=== PATIENT | female | born 1990 | race Caucasian/White ===

== ENCOUNTER → 2021-09-11 04:57 | Outpatient (CLI) | payer BC, SELFPAY ==
[2021-09-11 13:02] LABS: SARS-CoV-2 RNA PCR Negative
== END ==
PROVIDERS: Visit Provider Obstetrics & Gynecology
DX: Z01.812 Encounter for preprocedural laboratory examination (principal); Z20.822 Contact with and (suspected) exposure to COVID-19
CPT/HCPCS: C9803; U0003; U0005

== ENCOUNTER 2021-09-14 02:44 | Day surgery (SDC) | payer BC, SELFPAY ==
[2021-09-10 09:23] VITALS: BMI 21.6
--- NOTE | 2021-09-10 09:33 | PC.NURSE ---
Report to the Outpatient Waiting Room, entrance under the green pavilion located off [facility], at time 0600 on date 09/14/21. OR Time: 0730. - You and your visitor will be asked a series of questions to screen for COVID 19 for your protection. - A mask is required within the hospital. One visitor will be allowed to accompany the patient into the hospital. Patients visitor will be instructed to remain with patient at all times or leave the building. We will allow the visitor to come back to the postoperative area when patient is ready. Preoperative COVID Testing Requirements: COVID TEST 09/11 AT 0935 No COVID Test needed if: (proof is required; if not received patient will have Rapid Test prior to entry) - Patient has received COVID Vaccine at least 14 days prior to procedure date or - Patient has positive COVID test result within last 90 days of surgery date. COVID Test needed if above criteria is not met If not COVID vaccinated a COVID test must be conducted within 72 hours of surgery and patient is asked to isolate self from time of testing until procedure. You will go to the [facility] for your COVID testing. The [facility] site is located at the corner of [address] [facility]. You will only be called if COVID results are positive and your surgeon may reschedule your elective surgery date. Patients may have clear liquids (water, carbonated beverages, clear teas, apple juice) until 3 hours prior to surgery with a maximum of 20 ounces. - No food from midnight until time of surgery Take the following medications with a SIP of water the morning of surgery: CEPHALEXIN Medications to discontinue per physician: N/A Date to take last dose: N/A Please no make-up, nail australian, hairspray, perfume, deodorant, or body powder the day of surgery. No jewelry (including any body piercings) or valuables the day of surgery, leave them at home. Please take a shower or bath the night before, or the morning of, surgery with an antibacterial soap. Wear comfortable, loose fitting clothing. - Jewelry must be removed prior to entering the operating room. Rings and piercings that are not removed may be cut off. - The hospital will not accept responsibility for valuables. - Please leave all valuables, including medications, at home the day of surgery. If you are going home after surgery, a licensed rolloff truck driver must drive you home. - NO public transportation without another adult. - We recommend that an adult stay with you for 24 hours following discharge. - We also recommend that you do not drive, make important decision, drink alcoholic beverages, or take any drugs that were not prescribed by your health care provider for at least 24 hours after your discharge time. Follow any additional instructions given to you from your surgeon. Telephone instructions given to DANITA CUEVA and asked if any additional questions and then verbalized understanding. Patient advised to call surgeon office or pre surgery nurse liaison [phone] if any additional questions.
--- NOTE | 2021-09-12 13:07 | P.PNAN_ITS ---
Anes - Initial Pre Proc Eval Procedure: Operation Date: 09/14/21 07:30 Proposed Procedures p Excision of Left [place] Gland - Mo Chatman MD Date/Time: 09/12/21 13:07 Surgeon: Mo Chatman MD Pre Op Diagnosis: Cyst in the Vaginal Patient Data Age: 30 Gender: F Height: 1.65 m Weight: 59 kg Allergies Allergy/AdvReac Type Severity Reaction Status Date / Time meperidine [From Demerol] Allergy Unknown Verified 09/14/21 06:07 nitrofurantoin AdvReac Intermediate Nausea Verified 09/14/21 06:07 [From Macrobid] Home Medications Medication Instructions Recorded Confirmed Type No Home Medications 09/14/21 09/14/21 History Patient hx anesthesia problems: none Family hx anesthesia problems: none Results Review: All pre-operative results and documents have been reviewed as part of the pre-operative evaluation. [facility] Social History Social History Smoking packs per day: 1 Smoking cigarettes per day: 20.0 Years smoked: 10 Smoking pack-years: 10.00 Smoking status: Former smoker Tobacco type: cigarettes Smoking end date: 06/27/18 Alcohol intake: never Substance use: never Substance use type: does not use Living arrangements: with family Spiritual care concerns: No Anes - Eval Final PreProcedure Day of Procedure 09/12/21 13:07 Patient weight: normal Heart: regular rate and rhythm Lungs: clear to auscultation and normal air movement Airway: Mallampati scale class II Neurological: alert and oriented Last oral intake: >/= 8 hours ASA classification: II Emergent: no Anesthetic plan: proceed Anesthesia type and monitoring: general GIVS and standard monitoring Results Review: All pre-operative results and documents have been reviewed as part of the pre-operative evaluation. Informed Consent: The patient's anesthetic plan and its attendant risks and benefits were discussed with the patient/family/POA. Questions were solicited and answers provided to the satisfaction of the patient/family/POA.
--- NOTE | 2021-09-13 07:17 | PM.IMHP ---
H&P: HPI History of Present Illness Date/Time: 09/13/21 07:17 Who is the 30-year-old female who is admitted for removal of enlarged [place]'s gland which has caused her pain. This being on for weeks. And in fact months. Her course has been significant for severe discomfort in antibiotics of failed. Risks and benefits reviewed Chief Complaint: lump in vagina Review of Systems Review of Systems: All systems reviewed & are unremarkable except as noted in HPI and below PMFSH Social History Social History Smoking packs per day: 1 Smoking cigarettes per day: 20.0 Years smoked: 10 Smoking pack-years: 10.00 Smoking status: Former smoker Tobacco type: cigarettes Smoking end date: 06/27/18 Alcohol intake: never Substance use: never Substance use type: does not use Spiritual care concerns: No Meds Home Medications and Allergies Home Medications Medication Instructions Recorded Confirmed Type ciprofloxacin 500 mg PO Q12H 09/10/21 09/10/21 History Allergies Allergy/AdvReac Type Severity Reaction Status Date / Time meperidine [From Demerol] Allergy Unknown Verified 09/10/21 09:22 nitrofurantoin AdvReac Severe Nausea Verified 09/10/21 09:22 [From Macrobid] Exam Const: General: no acute distress Eyes: General: appearance normal, both eyes and all related structures Neck: Neck: supple and no JVD Thyroid: thyroid normal Resp: Effort & Inspection: normal respiratory effort Auscultation: clear to auscultation bilaterally Cardio: Rate: regular rate Rhythm: regular rhythm GI: Inspection: non-distended GI Palp: Yes Soft to palpation, No Tenderness to palpation present (GI) and No Guarding due to palpation present (GI) Auscultation: normal bowel sounds : External Female Exam: normal external appearance Speculum Exam - Vagina: normal appearance of the vagina and Vaginal cyst present Speculum Exam - Cervix: normal appearance of the cervix Bimanual exam- vagina & uterus: soft Bimanual Exam- Adnexa, other: normal adnexae Skin: General skin exam: no rashes or lesions noted Extrem: General: normal to inspection and no edema Psych: Mental Status: mental status grossly normal Affect: normal affect Assessment and Plan Additional Plan impression: Enlarged left [place]'s gland Plan: Excision of left [place]'s gland
[2021-09-14] VITALS (8 sets, daily range): BP systolic 91–124; BP diastolic 57–77; PULSE 62–103; RESP 12–20; TEMP 36.8; O2SAT 99–100
[2021-09-14] MEDS: ACETAMINOPHEN 500 MG TABLET 1000 MG PO (06:20)
[2021-09-14] MEDS: LACTATED RINGERS 1,000 ML 30 ML IV CONT (06:20)
--- NOTE | 2021-09-14 07:42 | WPDHPUPDATE1 ---
History and Physical Update Update Date/Time: 09/14/21 07:42 History and Physical has been reviewed, including an updated exam of the patient. There are NO changes in the patient's condition. Risks, benefits, and alternatives have been discussed and questions answered. Patient agrees to proceed with procedure.
[2021-09-14] MEDS: LIDOCAINE HCL 1% PF 30 ML VIAL INFILTRATE (08:08)
--- NOTE | 2021-09-14 08:13 | W.PM.PROC2 ---
Procedure Note - Detailed Date of Procedure 09/14/21 Pre-op Diagnosis Cyst in the Vaginal Post-op Diagnosis Same Procedure Performed Excision left Bartholin's cyst Surgeon Mo Chatman MD Anesthesia General and Local Indications This is a 30-year-old female with chronic severe pain due to Bartholin cyst Findings Small partial in CIS that was somewhat inflamed Description of Procedure The patient was prepped draped in the sterile fashion placed in the dorsal lithotomy position. Under excellent general trach anesthesia incision was made Bartholin's cyst area. Was not tremendously large but to swollen. This was then cored out by blunt dissection and then eventually sharp dissection at its base. Layered 3-0 Vicryl was used to close lower areas and 0 Vicryl used to close the mucosa blood loss was estimated 5cc all sponge, needle, instrument counts were correct. There were no immediate complications Estimated Blood Loss 5 Drains No Packing No Pathology Yes Complications No immediate complications Condition Stable Disposition PACU
[2021-09-14] MEDS: oxyCODONE HCL (*CRX) 5 MG TAB IR PO (09:09)
[2021-09-14] MEDS: fentaNYL CITRATE INJ (*CRX) 100 MCG/2 ML VIAL 25 MCG IV PUSH (09:45)
== END 2021-09-14 10:15 | disposition home or self-care (01) ==
PROVIDERS: PCP Nurse Practitioner Family; Visit Provider Obstetrics & Gynecology
PROC: (CPT 11422; principal; 2021-09-14 07:30)
DX: N90.89 Other specified noninflammatory disorders of vulva and perineum (principal); R10.2 Pelvic and perineal pain; Z87.891 Personal history of nicotine dependence
CPT/HCPCS: 11422; 12041; 88305; A9270; J1100; J2250; J2405; J2704; J3010; J7120

== ENCOUNTER 2022-01-12 16:19 | Outpatient (CLI) | payer BC, SELFPAY ==
--- NOTE | ~2022-01-12 | MR_ITS ---
EXAMINATION: MR pelvis wo/w con DATE: 01/12/2022 17:19 INDICATION: Left pelvic pain. TECHNIQUE: Magnetic resonance imaging (MRI) of the pelvis was performed without and with 12 mL MultiH ance intravenous contrast. COMPARISON: Pelvis ultrasound 11/08/2012, 03/18/2015 FINDINGS: There is a 5 mm nabothian cyst in the cervix. The endometrial complex measures 5 mm in thickness. The ovaries are normal. There is physiologic fluid in the pelvis. There are no pathologically enlarged l ymph nodes. There are no dilated loops of bowel. IMPRESSION: 1. No etiology for the patient's symptoms. Reviewed, dictated and finalized at location A.
[2022-01-12 16:46] LABS: Estimated Glomerular Filt Rate > 60
== END 2022-01-12 16:20 | disposition home or self-care (01) ==
PROVIDERS: PCP Nurse Practitioner Family; Visit Provider Obstetrics & Gynecology
DX: R10.12 Left upper quadrant pain (principal)
CPT/HCPCS: 72197; A9577

== ENCOUNTER 2023-02-25 13:29 | Observation (INO) | payer BC, SELFPAY ==
[2023-02-25] VITALS (7 sets, daily range): BP systolic 119–140; BP diastolic 74–88; PULSE 87–114; BMI 33.3
[2023-02-25] MEDS: DEXTROSE 5%/LACTATED RINGERS 1,000 ML 999 ML IV CONT (16:20)
--- NOTE | 2023-02-25 16:32 | OBADM ---
This patient, Hermelinda Escobar, admitted to the OB room Labor/Delivery/Recovery 107 for observation. Patient/family oriented to hospital policies and general routines including ID bracelet, bed and alarms, visiting hours, pain management, procedures, bathroom and other care routines, personal items, smoking policy, room service/diet, and visiting hours. Patient/Family are encouraged to report perceived risks to care and to ask questions if they do not understand what they are told or what they should do.
--- NOTE | 2023-02-25 16:33 | PC.NURSE ---
Report received from Shantelle Oliver RN, care of patient assumed at this time.
--- NOTE | 2023-03-16 00:08 | PM.OBTRLD ---
OB - Triage/Final Diagnosis Visit Information Comments/Additional reasons for admission: I have assessed the risk for this patient, Hermelinda Escobar, and determined that she would benefit from observation care. Final Diagnosis (1) False labor: Code(s): O47.9 - False labor, unspecified Status: Acute
== END 2023-02-25 18:35 | disposition home or self-care (01) ==
PROVIDERS: Admitting Provider Obstetrics & Gynecology; PCP Nurse Practitioner Family; Visit Provider Obstetrics & Gynecology
DX: O47.1 False labor at or after 37 completed weeks of gestation (principal); Z3A.37 37 weeks gestation of pregnancy
CPT/HCPCS: G0378; G0379; J7121

== ENCOUNTER 2023-03-07 09:12 | Outpatient (CLI) | payer BC, SELFPAY ==
[2023-03-07 10:21] LABS: Hematocrit 38.7 % (37.0-47.0); Hemoglobin 12.5 g/dL (12.0-15.0); Mean Corpuscular HGB Conc 32.3 g/dl (32-36); Mean Corpuscular Hemoglobin 28.5 pg (26-34); Mean Corpuscular Volume 88.2 fl (80-100); Platelet Count Result 279 k/mm3 (150-375); Red Blood Count 4.39 M/mm3 (4.2-5.4); Red Cell Distribution Width 13.5 % (11.5-14.5); White Blood Count 8.6 K/mm3 (4.5-10.0)
[2023-03-07 15:31] LABS: Rapid Plasma Reagin Non-Reactive (NonReactive)
== END 2023-03-07 09:13 | disposition home or self-care (01) ==
LOC: ANHLAB 09:14
PROVIDERS: PCP Nurse Practitioner Family; Visit Provider Obstetrics & Gynecology
DX: Z01.818 Encounter for other preprocedural examination (principal)
CPT/HCPCS: 36415; 85027; 86592; 86850; 86900; 86901

== ENCOUNTER 2023-03-08 09:23 | Inpatient (IN) | payer BC, SELFPAY ==
[2023-03-08] VITALS (62 sets, daily range): BP systolic 98–156; BP diastolic 56–137; PULSE 60–124; RESP 12–19; TEMP 36.4–37; O2SAT 93–100; BMI 33.3
[2023-03-08] MEDS: LACTATED RINGERS 1,000 ML 125 ML IV CONT ×2 (10:11→11:21)
--- NOTE | 2023-03-08 10:40 | WPDANESEPPF ---
Anes - Initial Pre Proc Eval Procedure: Operation Date: 03/08/23 12:00 Proposed Procedures p Primary Section - Hermes Haley MD Date/Time: 03/08/23 10:40 Surgeon: Hermes Haley MD Pre Op Diagnosis: primary Csection due to poor perineal healing/preA Patient Data Age: 32 Gender: F Height: 1.65 m Weight: 91 kg Last Vital Signs Pulse 89 03/08/23 09:46 BP 130/79 03/08/23 09:46 O2 Del Method Room Air 03/08/23 10:31 Allergies Allergy/AdvReac Type Severity Reaction Status Date / Time meperidine [From Demerol] Allergy Unknown Verified 03/08/23 10:30 nitrofurantoin AdvReac Intermediate Nausea Verified 03/08/23 10:30 [From Macrobid] Home Medications Medication Instructions Recorded Confirmed Type vit#24-iron amino acid 1 tablet PO DAILY 02/11/23 03/08/23 History chelat-folic acid 30 mg-975 mcg tablet Patient hx anesthesia problems: none Family hx anesthesia problems: none Results Review: All pre-operative results and documents have been reviewed as part of the pre-operative evaluation. [facility] Family History Family History (Updated 02/11/23 @ 09:51 by Beulah Hampton RN) Mother Hypertension Grandparent Hypertension Social History Social History Smoking packs per day: 1 Smoking cigarettes per day: 20.0 Years smoked: 10 Smoking pack-years: 10.00 Smoking status: Former smoker Tobacco type: cigarettes Second hand tobacco smoke exposure: No Smoking end date: 06/27/18 Alcohol intake: never Substance use: never Substance use type: does not use Lack of Transportation: No Lack of Food: Never True Current Housing: I Have Housing Concerned About Future Housing: No Difficulty Paying Gas/Electric Bills: No Difficulty Paying for Meds: No Currently Unemployed: No Education: High School Diploma/GED Difficulty w/ Childcare or Family Care: No Living arrangements: with family Spiritual care concerns: No Anes - Eval Final PreProcedure Day of Procedure 03/08/23 10:40 Patient weight: obese Heart: regular rate and rhythm Lungs: clear to auscultation and normal air movement Airway: Mallampati scale class II Neurological: alert and oriented Last oral intake: >/= 8 hours ASA classification: II Emergent: no Anesthetic plan: proceed Anesthesia type and monitoring: regional spinal and standard monitoring Results Review: All pre-operative results and documents have been reviewed as part of the pre-operative evaluation. Informed Consent: The patient's anesthetic plan and its attendant risks and benefits were discussed with the patient/family/POA. Questions were solicited and answers provided to the satisfaction of the patient/family/POA.
--- NOTE | 2023-03-08 11:23 | PM.IMHP ---
H&P: HPI History of Present Illness Date/Time: 03/08/23 11:23 Chief Complaint: Here for c section Narrative: 32 y/o at 39 2/7 weeks gestation here for primary . She has had vulvar surgery in the past and had difficulty healing, so she has requested primary for this delivery. In addition, she would like permanent contraception. Review of Systems Review of Systems: All systems reviewed & are unremarkable except as noted in HPI and below PMFSH Past Medical History Medical History Chronic vulvitis Family History Family History Mother Hypertension Grandparent Hypertension Social History Social History Smoking packs per day: 1 Smoking cigarettes per day: 20.0 Years smoked: 10 Smoking pack-years: 10.00 Smoking status: Former smoker Tobacco type: cigarettes Second hand tobacco smoke exposure: No Smoking end date: 06/27/18 Alcohol intake: never Substance use: never Substance use type: does not use Lack of Transportation: No Lack of Food: Never True Current Housing: I Have Housing Concerned About Future Housing: No Difficulty Paying Gas/Electric Bills: No Difficulty Paying for Meds: No Currently Unemployed: No Education: High School Diploma/GED Difficulty w/ Childcare or Family Care: No Living arrangements: with family Spiritual care concerns: No Meds Home Medications and Allergies Home Medications Medication Instructions Recorded Confirmed Type vit#24-iron amino acid 1 tablet PO DAILY 02/11/23 03/08/23 History chelat-folic acid 30 mg-975 mcg tablet Allergies Allergy/AdvReac Type Severity Reaction Status Date / Time meperidine [From Demerol] Allergy Unknown Verified 03/08/23 10:30 nitrofurantoin AdvReac Intermediate Nausea Verified 03/08/23 10:30 [From Macrobid] Vital Signs Vital Signs - 24 hr 03/08/23 09:40 03/08/23 09:46 03/08/23 10:31 Pulse Rate 103 H 89 Blood Pressure 121/92 H 130/79 Oxygen Delivery Room Air Exam Const: Orientation/consciousness: patient oriented x3 Other: Well-developed, well-nourished female in no acute distress. Neck: Thyroid: thyroid normal Lymphatic: no lymphadenopathy noted (in neck, axilla or inguinal nodes) Resp: Effort & Inspection: normal respiratory effort Auscultation: clear to auscultation bilaterally Cardio: Rate: regular rate Rhythm: regular rhythm Heart sounds: S1 normal heart sound present and S2 normal heart sound present GI: Other: ABD: Soft, nontender, nondistended, gravid. FH 38 cm. NST reactive. No contractions. No guarding or rebound tenderness. No hepatosplenomegaly. : General: Yes no CVA tenderness Other: Cervix 2/50/-2 Back/Spine/Pelvis: Back: no CVA tenderness Skin: General skin exam: normal color and no rashes or lesions noted Neuro: General: patient oriented x3 Extrem: Other: Extremities: nontender with no edema Psych: Mental Status: mental status grossly normal Affect: normal affect Assessment and Plan Assessment and plan (1) Term : Code(s): Z34.90 - Encounter for supervision of normal , unspecified, unspecified trimester Status: Acute Assessment and Plan: A: IUP at 39 2/7 weeks desiring primary . Also desires permanent contraception. P: Offered primary with concurrent bilateral tubal ligation. She understands there are temporary methods of contraception available to her. She understands that there are nonsurgical options as well as surgical options. She understands that tubal ligation will render her permanently sterile. She understands that there is a failure rate associated with tubal ligation, as well as an inherent ectopic gestation risk. Furthermore, she understan
[2023-03-08] MEDS: ceFAZolin 2 GM/D5W 50 ML 2 GM/50 ML BAG IVPB (11:25)
--- NOTE | 2023-03-08 11:29 | WPDHPUPDATE1 ---
History and Physical Update Update Date/Time: 03/08/23 11:29 History and Physical has been reviewed, including an updated exam of the patient. There are NO changes in the patient's condition. Risks, benefits, and alternatives have been discussed and questions answered. Patient agrees to proceed with procedure.
--- NOTE | 2023-03-08 12:26 | PM.OBPRVD ---
OB - Delivery Note Procedure Delivery date: 03/08/23 Procedure: Procedures Operation Date: 03/08/23 12:00 <No data on this case meets the specified criteria> 1) Primary low transverse delivery 2) Bilateral tubal ligation via modified Hellen technique Delivery monitor: External FHT and External Uterine Route of delivery: Specimen: Yes (Cord blood, segments of bilateral Fallopian tubes) Quantitative Blood Loss (ml): 305 Anesthesia type: Spinal Disposition: PACU Complications: None Narrative: The patient was taken to the operating room where she was prepared and draped in the usual sterile fashion in dorsal supine position with a leftward tilt. She received cefazolin preoperatively. Spinal anesthesia was found to be adequate. A Pfannenstiel skin incision was made and carried through to the underlying layer of the fascia. The fascia was incised in the midline and the incision was extended laterally. The fascia was dissected free of the underlying rectus muscles. The rectus muscles were in the midline. The peritoneum was identified, tented up and entered sharply. The peritoneal incision was extended superiorly and inferiorly with good visualization of the bladder. The bladder blade was placed. The vesicouterine peritoneum was identified, tented up and entered sharply. The incision was extended laterally and the bladder flap was developed. The bladder blade was replaced. The uterus was then incised sharply in a transverse fashion along the lower uterine segment. The incision was extended laterally. The 's head was delivered atraumatically to the sterile field, followed by the body. The nose and mouth were bulb suctioned. After a delay, the cord was clamped and cut. The was handed off the field. Cord blood was collected. The placenta was removed manually and was passed off the field. The uterus was exteriorized and cleared of all clots and debris. The uterine incision was reapproximated using 0 Monocryl in a running, locked fashion. Excellent hemostasis resulted as did excellent reapproximation of the normal anatomy. The left fallopian tube was then identified by following it out to the fimbriated end. It was grasped in the midportion with a Mariah clamp and a loop of tube was ligated with a free tie of 0 plain gut. The tubal segment was then transected and the specimen was passed off to be sent to pathology. Hemostasis was excellent. Attention was turned to the right fallopian tube which was similarly identified, ligated and transected. Once again, excellent hemostasis resulted. The uterus was returned the abdomen. The pelvis was irrigated copiously with warmed normal saline. Rigorous hemostasis was assured. The fascial layer was reapproximated using 0 Vicryl in a running fashion. The skin was closed with a running, subcuticular stitch of 4 0 Vicryl. Dermaflex was applied externally. Sponge, lap, needle and instrument counts were correct. The patient was taken to the recovery room in stable condition. The infant went to the nursery in stable condition. I was present and scrubbed the entire procedure. [place] Baby Date of : 03/08/23 Time of : 11:53 Weeks of gestation at delivery: 39 gender: Male Weight (pounds): 8 Weight (ounces): 6 presentation: vertex Placenta delivery description: Manual Removal and Normal Configuration Cord Vessel Description: 3 Vessels and Delayed Cord Clamping score one minute: 9 score five minutes: 9
--- NOTE | 2023-03-08 12:29 | PM.OBDSVD ---
DS: Admitting Diagnosis Discharge Date 03/10/23 Admitting Diagnosis IUP at 39 2/7 weeks History of poor healing after vulvar surgery Desired sterility DS: Discharge Diagnosis Discharge Diagnosis (1) Unwanted fertility: Code(s): Z30.09 - Encounter for other general counseling and advice on contraception Status: Acute (2) Vulvar abnormality in : Code(s): O34.70 - Maternal care for abnormality of vulva and perineum, unspecified trimester Status: Acute (3) delivery delivered: Code(s): O82 - Encounter for delivery without indication Status: Acute OB - DS: Summary OB Procedures : None OB Procedures Intrapartum: and Tubal ligation OB Procedures: : None Peripartum Data Procedures: Procedures Operation Date: 03/08/23 12:00 <No data on this case meets the specified criteria> Time Spent with Patient Time attestation: Total time spent providing and/or coordinating discharge services: Discharge Plan Discharge Attending physician on discharge: Hermes Haley Discharging Clinician: Hermes Haley Patient Disposition: Home, Self-Care Activity: may shower and may drive after 2 weeks Diet: regular Wound Care Instructions: incision open to air Discharge Instructions: Call or return if temperature above 100.4? F, increased abdominal pain, increased vaginal bleeding or any new problems. Stand Alone Forms: General Discharge Information Follow-up/Referrals: Hermes Haley MD [Physician] - 4 Weeks Discharge Medications: New ibuprofen 600 mg tablet 600 mg PO Q6H PRN (Reason: cramps) Qty: 30 0RF hydrocodone-acetaminophen 5-325 mg tablet 1 - 2 tablet PO Q6H PRN (Reason: pain) Qty: 30 0RF Continued PNV no.40-rnbb-[id number] acid 30-975 mg-mcg Tablet 1 tablet PO DAILY Date of admission: 03/08/23 09:23 Primary Care Provider: BarneyRuma Admitting Provider: Hermes Haley Attending physician on admission: Hermes Haley Condition: Stable
[2023-03-08] MEDS: OXYTOCIN 30 UNITS/NS 500 ML 30 UNITS/500 ML BAG 125 UNITS IV CONT (12:50)
--- NOTE | 2023-03-08 14:11 | PC.NURSE ---
Heart tones found in OR at 1134. FHT 150.
[2023-03-08] MEDS: diphenhydrAMINE HCl INJ 50 MG/ML VIAL 25 MG IV PUSH (14:23)
--- NOTE | 2023-03-08 14:56 | PC.NURSE ---
Patient transferred to post room #284 via stretcher. Support person present. Oriented to unit, room, information board, rooming in, admission packet and security measures. Patient verbalizes understanding.
[2023-03-08] MEDS: KETOROLAC 30 MG/ML VIAL (*BKC) IV PUSH ×2 (15:08→21:32)
[2023-03-08] MEDS: DEXTROSE 5%/0.45% SOD CHL 1,000 ML 125 ML IV CONT (15:09)
[2023-03-09 06:03] LABS: Basophils Percent Auto 0.2 % (0.2-1.2); Eosinophils Absolute Auto 0.1 K/mm3 (0-0.3); Eosinophils Percent Auto 0.9 % (0-4.4); Hematocrit 33.9 % (37.0-47.0); Immature Granulocyte Absolute 0.14 K/mm3 (0.00-0.031); Immature Granulocyte Percent A 1.2 % (0-0.5); Lymphocytes Absolute Auto 1.04 K/mm3 (0.9-3.2); Lymphocytes Percent Auto 8.7 % (18.3-44.2); Mean Corpuscular HGB Conc 32.4 g/dl (32-36); Mean Corpuscular Hemoglobin 28.4 pg (26-34); Mean Corpuscular Volume 87.4 fl (80-100); Mean Platelet Volume 10.5 fl (7.4-10.4); Monocytes Absolute Auto 0.7 K/mm3 (0.1-0.6); Monocytes Percent Auto 5.9 % (2.6-8.5); Neutrophils Percent Auto 83.1 % (45.5-73.1); Platelet Count Result 208 k/mm3 (150-375); Red Blood Count 3.88 M/mm3 (4.2-5.4); Red Cell Distribution Width 13.4 % (11.5-14.5)
[2023-03-09] MEDS: IBUPROFEN 600 MG TABLET PO ×3 (06:10→20:05)
[2023-03-09] MEDS: HYDROcodone/acetaminophen (*CRX) 5-325 MG TABLET 1 TAB PO ×2 (06:10→09:47)
[2023-03-09 07:17] VITALS: BP 127/72; PULSE 88; RESP 18; TEMP 36.9; O2SAT 98
--- NOTE | 2023-03-09 08:11 | PC.NURSE ---
On 03/09/23, the student, Bhakti Farah, provided care and completed [facility] documentation on this patient. I have reviewed the student's documentation and agree with the findings.
--- NOTE | 2023-03-09 08:35 | PC.NURSE ---
Pt introductions made and plan of care discussed per post op c section, pain management, breast feeding, daily care activities. PT sole recipient of such care and no barriers to learning identified at this time. PT received such instructions per one to one discussion, mom baby guide and demonstrations this shift. PT verbalized understanding of such care.
--- NOTE | 2023-03-09 09:35 | WPDANLDNPN2 ---
Anes-Prog Note L&D-Neuraxial Date/Time: 03/09/23 09:35 Neuraxial medications: intrathecal PF morphine Opiod-related complaints: none Patient feedback: Patient satisfied with post-operative pain management.
--- NOTE | 2023-03-09 09:35 | WPDANLDPN2 ---
Anes-Prog Note L&D Date/Time: 03/09/23 09:35 Comfortable throughout: section Neuraxial method: spinal Epidural/Spinal procedure site: clean & non-tender Neuro status: Neuro function grossly intact. Cardiovascular status: normal Respiratory status: normal Airway patency: baseline Mental status: baseline Post-Op hydration status: normal Vital Signs: Last Vital Signs Temp 36.9 C 03/09/23 07:17 Pulse 88 03/09/23 07:17 Resp 18 03/09/23 07:17 BP 127/72 03/09/23 07:17 Pulse Ox 98 03/09/23 07:17 O2 Del Method Room Air 03/08/23 23:55 Pain score (VAS): 07/06 I/O: Intake & Output 03/08/23 03/09/23 03/09/23 23:59 07:59 15:59 Intake Total 850 Output Total 1925 Balance -1075 Post-procedural complaints: pruritis moderate, treatment effective Patient feedback: Patient satisfied with anesthetic care.
[2023-03-09 09:45] VITALS: PULSE 88; RESP 18; O2SAT 98
[2023-03-09] MEDS: SIMETHICONE 80 MG TAB.CHEW PO ×3 (09:46→16:45)
[2023-03-09] MEDS: MULTIVIT/MIN/PREN/FOL AC/IRON TABLET 1 TAB PO (09:47)
[2023-03-09] MEDS: DOCUSATE SODIUM 100 MG CAPSULE PO ×2 (09:47→16:45)
[2023-03-09] MEDS: POLYSACCHARIDE IRON COMPLEX 150 MG CAPSULE PO (09:48)
[2023-03-09] MEDS: LANOLIN (LANSINOH) 7.5 GM CREAM 1 APPLIC TOPICAL (09:48)
[2023-03-09] MEDS: HYDROcodone/acetaminophen (*CRX) 10-325 MG TABLET 1 TAB PO ×3 (12:28→20:05)
--- NOTE | 2023-03-09 12:31 | PC.NURSE ---
[id number] Introductions were made and RNs name was written on the communication board. Primary RN is demonstrating bathing in the room. Mother states is with no pain, however, has difficulty staying awake. Mother encouraged to call for the next feeding.
--- NOTE | 2023-03-09 14:45 | PC.NURSE ---
PT received discharge instructions per protocol and pt verbalized understanding of such care,
--- NOTE | 2023-03-09 16:57 | PM.OBPNVD ---
OB - PN: Subj Subjective Date/time seen: 03/09/23 16:57 Narrative: Pain OK. Tolerating diet. Would like circumcision for son. OB - PN: Obj Data Labs 03/09/23 05:54 Labs: Laboratory Results - last 24 hr 03/09/23 05:54 WBC 12.0 H RBC 3.88 L Hgb 11.0 L Hct 33.9 L MCV 87.4 MCH 28.4 MCHC 32.4 RDW 13.4 Plt Count 208 MPV 10.5 H Immature Gran % (Auto) 1.2 H Neut % (Auto) 83.1 H Lymph % (Auto) 8.7 L [place] % (Auto) 5.9 Eos % (Auto) 0.9 Baso % (Auto) 0.2 Lymph # (Auto) 1.04 [place] # (Auto) 0.7 H Eos # (Auto) 0.1 Baso # (Auto) 0.0 Abs Immat Gran (auto) 0.14 H Absolute Neuts (auto) 10.0 H Absolute Nucleated RBC 0.0 Nucleated RBC % 0.0 OB - PN A/P Plan Comments: A: POD#1, doing well. P: Reviewed circ. Routine care. Exam Narrative: AVSS I/O OK ABD soft, nontender, fundus firm. Incision c/d/i. EXT nontender
[2023-03-09 20:00] VITALS: BP 115/67; PULSE 87; RESP 18; TEMP 36.5; O2SAT 100
[2023-03-10 02:20] VITALS: BP 124/87; PULSE 85; RESP 16; TEMP 36.7; O2SAT 98
[2023-03-10] MEDS: HYDROcodone/acetaminophen (*CRX) 10-325 MG TABLET 1 TAB PO ×2 (02:20→09:38)
[2023-03-10] MEDS: IBUPROFEN 600 MG TABLET PO ×2 (05:30→12:03)
--- NOTE | 2023-03-10 08:10 | PC.NURSE ---
PT introductions made and plan of care discussed per post op c section, pain management, breast feeding, daily care activities and pending discharge to home. PT and spouse both recipients of such instructions and no barriers to learning identified at this time. PT received such instructions per one to one discussion, mom baby care guide and demonstrations this shift. PT verbalized understanding of such care.
--- NOTE | 2023-03-10 08:57 | PM.OBPNVD ---
OB - PN: Subj Subjective Date/time seen: 03/10/23 08:57 Narrative: Pain OK. Tolerating diet. Would like to go home. OB - PN: Obj Data Labs 03/09/23 05:54 OB - PN A/P Plan Comments: A: POD#2, doing well. P: Home to f/u 4 weeks. Exam Narrative: AVSS ABD soft, nontender, fundus firm. Incision c/d/i. EXT nontender
[2023-03-10 09:30] VITALS: PULSE 86; RESP 18; O2SAT 100
[2023-03-10] MEDS: MULTIVIT/MIN/PREN/FOL AC/IRON TABLET 1 TAB PO (09:38)
[2023-03-10] MEDS: DOCUSATE SODIUM 100 MG CAPSULE PO (09:38)
[2023-03-10] MEDS: SIMETHICONE 80 MG TAB.CHEW PO (09:39)
[2023-03-10 09:40] VITALS: BP 135/84; PULSE 86; RESP 18; TEMP 37.6; O2SAT 100
--- NOTE | 2023-03-10 11:45 | PC.NURSE ---
PT received discharge instructions per protocol and verbalized understanding of such care.
--- NOTE | 2023-03-10 11:46 | PC.NURSE ---
[id number] Introductions were made after the brief meeting yesterday. Mother led the conversation with her experience and plan to feed her infant so far and her ability to independently latch optimally without discomfort. Mother demonstrated effectively latching her infant to the left and right breast using the football positioning. We reviewed the signs of intake with swallowing. Reminded mother to use good handwashing technique to prevent infection. Mother is feeding appropriately for growth of infant and understands stimulating infant to eat if needed. Infant has had appropriate feedings in the last 24 hours meets the outcomes for weight, output and jaundice at this time. Mother states she is confident to continue effectively her at home, when to call for assistance and denies any additional assistance or education at this time. Reinforced understanding of milk production, transition of milk, signs of adequate intake, transition of stool, prevention/relief of engorgement, plugged ducts, mastitis, responsive watching for feeding cues, the different methods of stimulating infant to breastfeed on demand aiming for every 1-3 hours after the start of the last feeding, community resources and when to call a provider using the resource of the mom and baby guide. Mother voiced understanding of the education shared. Reported to the primary RN.
--- NOTE | 2023-03-10 12:17 | PC.NURSE ---
PT discharged to home ambulatory accompanied by spouse and and walked to waiting car. Follow up appts confirmed
[2023-03-11 15:49] VITALS: BP 130/85; PULSE 74; RESP 18; TEMP 37; O2SAT 100
== END 2023-03-10 12:17 | disposition home or self-care (01) | DRG 785 ==
LOC: ANHLDR 12:31 → ANHOB2 15:04
PROVIDERS: Admitting Provider Obstetrics & Gynecology; PCP Nurse Practitioner Family; Visit Provider Obstetrics & Gynecology
PROC: 10D00Z1 Extraction of Products of Conception, Low, Open Approach (ICD-10-PCS; CPT 59514; principal; 2023-03-08 12:00)
DX: O34.73 Maternal care for abnormality of vulva and perineum, third trimester (principal); Z37.0 Single live birth; Z3A.39 39 weeks gestation of pregnancy; Z30.2 Encounter for sterilization; Z98.890 Other specified postprocedural states
CPT/HCPCS: 36415; 85025; 88302; A9270; J0690; J1200; J1885; J2274; J2590; J7120